=== PATIENT | male | born 1945 | race Caucasian/White ===

== ENCOUNTER 2018-03-01 11:29 | Inpatient (IN) | payer MEDICARE, OTHER ==
[~2018-03-01] VITALS: Ht 170.2 cm; Wt 65.8 kg
[2018-03-01] MEDS ORDERED: FOLIC ACID 1 MG, THIAMINE HCL 100 MG, MVI, ADULT NO.1 10 ML in DEXTROSE 5% WATER 1,000 ML IV ONE ×4 (11:45)
[2018-03-01 12:01] LABS: BASOPHILS % 0.8 % (0.0-2.0); EOSINOPHILS % 4.6 % (0.0-5.0); HEMATOCRIT. 41.9 % (42.0-52.0); HEMOGLOBIN. 14.5 g/dL (14.0-18.0); LYMPHOCYTES % 43.1 % (20.0-50.0); MEAN CORPUSCULAR HEMOGLOBIN 34.2 pg (28.0-32.0); MEAN CORPUSCULAR VOLUME 98.7 fL (80.0-94.0); MEAN PLATELET VOLUME 6.8 fl (7.4-10.4); MONOCYTES % 7.1 % (2.0-8.0); NEUTROPHILS % 44.4 % (40.0-76.0); PLATELET 273 x1000/uL (130-400); RED BLOOD CELL COUNT 4.25 mill/uL (4.7-6.1); RED CELL DISTRIBUTION WIDTH 13.7 % (11.6-14.6)
[2018-03-01 12:11] LABS: CHLORIDE 104 mEq/L (98-107)
[2018-03-01 12:12] LABS: PARTIAL THROMBOPLASTIN TIME 28.2 sec (23.4-31.0); PROTHROMBIN TIME 10.1 sec (9.1-11.1)
[2018-03-01 12:14] LABS: CREATINE KINASE 108 IU/L (39-308)
[2018-03-01 12:19] LABS: CREATINE KINASE MB FRACTION 1.4 ng/mL (0.5-3.6)
[2018-03-01 12:30] LABS: ETHANOL BLOOD 370 mg/dL
[2018-03-01 14:24] LABS: *AMPHETAMINES SCREEN URINE NEGATIVE (NEGATIVE); *BARBITURATES SCREEN URINE NEGATIVE (NEGATIVE); *BENZODIAZEPINES SCREEN URINE NEGATIVE (NEGATIVE); *COCAINE SCREEN URINE NEGATIVE (NEGATIVE); CANNABINOID URINE SCREEN NEGATIVE (NEGATIVE); METHADONE URINE SCREEN NEGATIVE (NEGATIVE); OPIATES URINE SCREEN NEGATIVE (NEGATIVE); PHENCYCLIDINE URINE SCREEN NEGATIVE (NEGATIVE)
[2018-03-01 16:00] VITALS: BP 128/68
[2018-03-01] MEDS ORDERED: LORAZEPAM 2MG/ML CPJ IV PRN ×2 (16:00→20:45)
[2018-03-01] MEDS ORDERED: DOCUSATE SODIUM 100MG CAPSULE PO PRN (16:00)
[2018-03-01] MEDS ORDERED: NA PHOS,M-B/NA PHOS,DI-BA ENEMA 118ML PR PRN (16:00)
[2018-03-01] MEDS ORDERED: ACETAMINOPHEN 325MG TABLET PO PRN (16:00)
[2018-03-01] MEDS ORDERED: GUAIFENESIN 200MG/10ML SUGAR FREE UDC PO PRN (16:00)
[2018-03-01] MEDS ORDERED: IPRATROPIUM/ALBUTEROL 0.5-3(2.5)MG/3ML NEB INH PRN (16:00)
[2018-03-01] MEDS ORDERED: HYDROMORPHONE HCL/PF 2MG/ML CPJ IV PRN (16:00)
[2018-03-01] MEDS ORDERED: DIPHENHYDRAMINE 50MG/ML VIAL IV PRN (16:00)
[2018-03-01] MEDS ORDERED: HYDROCODONE/ACETAMINOPHEN 5/325MG TABLET PO PRN (16:00)
[2018-03-01] MEDS ORDERED: CLONIDINE 0.1MG TABLET PO PRN (16:00)
[2018-03-01] MEDS ORDERED: MAGNESIUM/ALUMINUM HYDROXIDE/SIMETHICONE 30ML UDC PO PRN (16:00)
[2018-03-01] MEDS ORDERED: ONDANSETRON HCL 4MG/2ML INJ IV PRN (16:00)
[2018-03-01] MEDS ORDERED: ENOXAPARIN 40MG/0.4ML SYR SUBCUT SCH (17:00)
[2018-03-01 17:12] VITALS: BP 128/78
[2018-03-01 17:38] LABS: CHLORIDE 104 mEq/L (98-107)
[2018-03-01 20:00] VITALS: BP 129/77
[2018-03-01] MEDS ORDERED: MVI, ADULT NO.1 10 ML, FOLIC ACID 1 MG, THIAMINE HCL 100 MG in SODIUM CHLORIDE 0.9% 1,0... IV SCH ×4 (20:00)
[2018-03-01] MEDS ORDERED: POTASSIUM CHLORIDE 10MEQ TABLET SR PO SCH (20:45)
[2018-03-01] MEDS ORDERED: PANTOPRAZOLE 40MG DR TABLET PO SCH (20:45)
[2018-03-02] VITALS: BP 103/57
[2018-03-02 04:00] VITALS: BP 136/74
[2018-03-02 06:48] LABS: BASOPHILS % 0.8 % (0.0-2.0); HEMATOCRIT. 38.5 % (42.0-52.0); HEMOGLOBIN. 13.2 g/dL (14.0-18.0); LYMPHOCYTES % 22.1 % (20.0-50.0); MEAN CORPUSCULAR HEMOGLOBIN 33.6 pg (28.0-32.0); MEAN PLATELET VOLUME 7.6 fl (7.4-10.4); MONOCYTES % 9.5 % (2.0-8.0); NEUTROPHILS % 66.6 % (40.0-76.0); PLATELET 258 x1000/uL (130-400); RED BLOOD CELL COUNT 3.93 mill/uL (4.7-6.1); RED CELL DISTRIBUTION WIDTH 14.2 % (11.6-14.6)
[2018-03-02 07:05] LABS: CHLORIDE 104 mEq/L (98-107)
[2018-03-02 07:16] LABS: ETHANOL BLOOD < 10 mg/dL; HDL CHOLESTEROL 34 mg/dL (40-59); LDL CHOLESTEROL 102 mg/dL (5-100); T4 FREE 0.87 ng/dL (0.76-1.46)
[2018-03-02 08:00] VITALS: BP 158/79
[2018-03-02] MEDS ORDERED: ASPIRIN 81MG EC TABLET PO SCH (09:00)
[2018-03-02] MEDS ORDERED: ENOXAPARIN 30MG/0.3ML SYR SUBCUT SCH (09:00)
[2018-03-02 12:00] VITALS: BP 149/82
[2018-03-02] MEDS ORDERED: POTASSIUM CHLORIDE 10MEQ TABLET SR PO SCH (14:15)
[2018-03-02 16:00] VITALS: BP 167/84
[2018-03-02 17:02] VITALS: BP 150/80
== END 2018-03-02 18:15 | disposition home or self-care (01) | DRG 917 ==
LOC: ER 11:29 → EDBEDREQ 13:03 → EDBEDREQTM 13:03 → 7WST 13:03 → EDBEDREQ 13:04 → ENRESERV 13:21
PROVIDERS: ADMIT Internal Medicine; ATTEND Internal Medicine
DX: T51.0X1A Toxic effect of ethanol, accidental (unintentional), initial encounter (principal); G92 Toxic encephalopathy; J98.11 Atelectasis; F10.231 Alcohol dependence with withdrawal delirium; E86.0 Dehydration; F17.200 Nicotine dependence, unspecified, uncomplicated; I10 Essential (primary) hypertension; J44.9 Chronic obstructive pulmonary disease, unspecified; M47.892 Other spondylosis, cervical region; Y90.8 Blood alcohol level of 240 mg/100 ml or more; W19.XXXA Unspecified fall, initial encounter; Y92.89 Other specified places as the place of occurrence of the external cause; Y93.89 Activity, other specified; Y99.8 Other external cause status
CPT/HCPCS: 36415; 71045; 80048; 80061; 80305; 80307; 80329; 82550; 82553; 83735; 84439; 84443; 84484; 93005; 96365; 96366; 99285; C1893; G0482; J1650; J3411; J3490; J7030; J7070

== ENCOUNTER 2019-05-02 07:32 | Emergency (ER) | payer MEDICARE, OTHER ==
[~2019-05-02] VITALS: Ht 165.1 cm; Wt 60.0 kg
[2019-05-02 11:00] LABS: CLARITY URINE CLOUDY (CLEAR); COLOR URINE YELLOW (YELLOW); KETONES URINE NEGATIVE (NEGATIVE); LEUKOCYTE ESTERASE URINE TRACE (NEGATIVE); NITRITE URINE NEGATIVE (NEGATIVE); OCCULT BLOOD URINE 3+ (NEGATIVE); PH URINE 6.5 (4.5-8.0); PROTEIN URINE 2+ (NEGATIVE); SPECIFIC GRAVITY URINE 1.011 (1.005-1.030); UROBILINOGEN URINE 0.2 E.U./dL (0.2-1.0)
[2019-05-02 11:02] LABS: BASOPHILS % 0.5 % (0.0-2.0); EOSINOPHILS % 1.1 % (0.0-5.0); HEMATOCRIT. 44.5 % (42.0-52.0); HEMOGLOBIN. 15.4 g/dL (14.0-18.0); LYMPHOCYTES % 13.8 % (20.0-50.0); MEAN CORPUSCULAR HEMOGLOBIN 35.5 pg (28.0-32.0); MEAN CORPUSCULAR VOLUME 102.6 fL (80.0-94.0); MEAN PLATELET VOLUME 7.6 fl (7.4-10.4); MONOCYTES % 9.5 % (2.0-8.0); NEUTROPHILS % 75.1 % (40.0-76.0); PLATELET 230 x1000/uL (130-400); RED BLOOD CELL COUNT 4.34 mill/uL (4.7-6.1); RED CELL DISTRIBUTION WIDTH 13.6 % (11.6-14.6)
[2019-05-02 11:09] LABS: CHLORIDE 103 mEq/L (98-107)
[2019-05-02 11:14] LABS: PROTHROMBIN TIME 10.6 sec (9.6-11.0)
[2019-05-02 12:57] VITALS: BP 155/87
== END 2019-05-02 13:16 | disposition home or self-care (01) ==
LOC: ER 07:50
DX: R33.9 Retention of urine, unspecified (principal)
CPT/HCPCS: 36415; 80053; 81003; 83880; 84484; 85025; 93005; 99284

== ENCOUNTER 2019-05-09 11:54 | Emergency (ER) | payer MEDICARE, MEDICAID ==
[~2019-05-09] VITALS: Ht 167.6 cm; Wt 77.0 kg
[2019-05-09 15:14] VITALS: BP 119/70
== END 2019-05-09 15:15 | disposition home or self-care (01) ==
LOC: ER 12:22
DX: R33.9 Retention of urine, unspecified (principal)
CPT/HCPCS: 99283

== ENCOUNTER 2019-06-20 17:41 | Emergency (ER) | payer MEDICARE, MEDICAID ==
[~2019-06-20] VITALS: Ht 154.9 cm; Wt 73.0 kg
[2019-06-20 19:13] LABS: CLARITY URINE CLEAR (CLEAR); COLOR URINE YELLOW (YELLOW); KETONES URINE NEGATIVE (NEGATIVE); LEUKOCYTE ESTERASE URINE 2+ (NEGATIVE); NITRITE URINE POSITIVE (NEGATIVE); OCCULT BLOOD URINE 3+ (NEGATIVE); PH URINE 5.5 (4.5-8.0); PROTEIN URINE NEGATIVE (NEGATIVE); SPECIFIC GRAVITY URINE 1.021 (1.005-1.030); UROBILINOGEN URINE 0.2 E.U./dL (0.2-1.0)
[2019-06-20 19:17] LABS: BASOPHILS % 0.6 % (0.0-2.0); EOSINOPHILS % 1.4 % (0.0-5.0); HEMOGLOBIN. 13.6 g/dL (14.0-18.0); LYMPHOCYTES % 8.7 % (20.0-50.0); MEAN CORPUSCULAR HEMOGLOBIN 34.4 pg (28.0-32.0); MEAN CORPUSCULAR VOLUME 98.6 fL (80.0-94.0); MEAN PLATELET VOLUME 6.7 fl (7.4-10.4); MONOCYTES % 7.5 % (2.0-8.0); NEUTROPHILS % 81.8 % (40.0-76.0); PLATELET 322 x1000/uL (130-400); RED BLOOD CELL COUNT 3.95 mill/uL (4.7-6.1)
[2019-06-20 19:20] LABS: CHLORIDE 104 mEq/L (98-107)
[2019-06-20 21:33] VITALS: BP 132/76
== END 2019-06-20 21:34 | disposition home or self-care (01) ==
LOC: ER 17:41
DX: N39.0 Urinary tract infection, site not specified (principal); N40.1 Benign prostatic hyperplasia with lower urinary tract symptoms; R33.8 Other retention of urine; F10.21 Alcohol dependence, in remission
CPT/HCPCS: 36415; 51702; 80053; 81003; 85025; 87077; 87186; 99283

== ENCOUNTER 2019-07-08 06:37 | Emergency (ER) | payer MEDICARE, MEDICAID ==
[~2019-07-08] VITALS: Ht 167.6 cm; Wt 74.0 kg
[2019-07-08 08:23] LABS: CLARITY URINE CLEAR (CLEAR); COLOR URINE ORANGE (YELLOW); KETONES URINE NEGATIVE (NEGATIVE); LEUKOCYTE ESTERASE URINE TRACE (NEGATIVE); NITRITE URINE NEGATIVE (NEGATIVE); OCCULT BLOOD URINE 3+ (NEGATIVE); PH URINE 6.5 (4.5-8.0); PROTEIN URINE TRACE (NEGATIVE); SPECIFIC GRAVITY URINE 1.012 (1.005-1.030); UROBILINOGEN URINE 0.2 E.U./dL (0.2-1.0)
[2019-07-08 11:05] VITALS: BP 142/86
== END 2019-07-08 11:14 | disposition home or self-care (01) ==
LOC: ER 07:15
DX: N39.0 Urinary tract infection, site not specified (principal); N40.1 Benign prostatic hyperplasia with lower urinary tract symptoms; R33.8 Other retention of urine
CPT/HCPCS: 81003; 99283

== ENCOUNTER 2019-08-22 07:08 | Emergency (ER) | payer MEDICARE, MEDICAID ==
[~2019-08-22] VITALS: Ht 167.6 cm; Wt 73.5 kg
[2019-08-22] MEDS ORDERED: LIDOCAINE HCL 1% 20ML VIAL (Pyxis) INJ INFIL ONE (08:45)
[2019-08-22] MEDS ORDERED: CEFTRIAXONE SODIUM 1 G/VIAL IM ONE (08:45)
[2019-08-22 09:07] VITALS: BP 157/79
== END 2019-08-22 09:10 | disposition home or self-care (01) ==
LOC: ER 07:08
DX: T83.098A Other mechanical complication of other urinary catheter, initial encounter (principal); N39.0 Urinary tract infection, site not specified; N40.1 Benign prostatic hyperplasia with lower urinary tract symptoms; R33.8 Other retention of urine; Y84.6 Urinary catheterization as the cause of abnormal reaction of the patient, or of later complication, without mention of misadventure at the time of the procedure; Y92.018 Other place in single-family (private) house as the place of occurrence of the external cause
CPT/HCPCS: 51702; 96372; 99284; J0696; J3490

== ENCOUNTER 2019-09-13 21:49 | Emergency (ER) | payer MEDICARE, MEDICAID ==
[~2019-09-13] VITALS: Ht 167.6 cm; Wt 80.0 kg
[2019-09-13 23:25] LABS: CLARITY URINE CLEAR (CLEAR); COLOR URINE YELLOW (YELLOW); KETONES URINE NEGATIVE (NEGATIVE); LEUKOCYTE ESTERASE URINE 2+ (NEGATIVE); NITRITE URINE NEGATIVE (NEGATIVE); OCCULT BLOOD URINE NEGATIVE (NEGATIVE); PROTEIN URINE NEGATIVE (NEGATIVE); SPECIFIC GRAVITY URINE 1.016 (1.005-1.030); UROBILINOGEN URINE 0.2 E.U./dL (0.2-1.0)
[2019-09-13 23:32] LABS: HEMATOCRIT 37.7 % (42.0-52.0); MEAN CORPUSCULAR HEMOGLOBIN 34.4 pg (28.0-32.0); MEAN CORPUSCULAR VOLUME 99.5 fL (80.0-94.0); PLATELET 227 x1000/uL (130-400); RED BLOOD CELL COUNT 3.79 mill/uL (4.7-6.1); RED CELL DISTRIBUTION WIDTH 15.2 % (11.6-14.6)
[2019-09-13 23:42] LABS: CHLORIDE 100 mEq/L (98-107)
[2019-09-14] MEDS ORDERED: CEPHALEXIN 250MG CAPSULE PO NR
[2019-09-14 00:23] VITALS: BP 160/80
== END 2019-09-14 00:26 | disposition home or self-care (01) ==
LOC: ER 21:49
DX: N39.0 Urinary tract infection, site not specified (principal); R33.9 Retention of urine, unspecified
CPT/HCPCS: 36415; 51702; 80053; 81003; 85027; 87077; 87186; 99284

== ENCOUNTER 2019-09-23 06:28 | Emergency (ER) | payer MEDICARE, MEDICAID ==
[~2019-09-23] VITALS: Ht 167.6 cm; Wt 73.0 kg
[2019-09-23] MEDS ORDERED: LEVO500T89 PO (07:03)
[2019-09-23] MEDS ORDERED: CEPH500C2 PO (07:03)
[2019-09-23 11:46] VITALS: BP 130/75
== END 2019-09-23 11:47 | disposition home or self-care (01) ==
LOC: ER 06:52
DX: T83.098A Other mechanical complication of other urinary catheter, initial encounter (principal); N40.1 Benign prostatic hyperplasia with lower urinary tract symptoms; R33.8 Other retention of urine; Y84.6 Urinary catheterization as the cause of abnormal reaction of the patient, or of later complication, without mention of misadventure at the time of the procedure; Y92.018 Other place in single-family (private) house as the place of occurrence of the external cause
CPT/HCPCS: 51702; 99284

== ENCOUNTER 2019-10-22 02:16 | Emergency (ER) | payer MEDICARE, MEDICAID ==
[~2019-10-22] VITALS: Ht 167.6 cm; Wt 75.7 kg
[~2019-10-22 02:16] MED LIST: CEPH500C2 PO; LEVO500T89 PO
[2019-10-22 02:17] VITALS: BP 114/93
== END 2019-10-22 19:46 | disposition left against medical advice (07) ==
LOC: ER 02:16
DX: R31.0 Gross hematuria (principal); R33.9 Retention of urine, unspecified; N40.0 Benign prostatic hyperplasia without lower urinary tract symptoms
CPT/HCPCS: 99284

== ENCOUNTER 2020-01-29 08:05 | Emergency (ER) | payer MEDICARE, MEDICAID ==
[~2020-01-29] VITALS: Ht 162.6 cm; Wt 68.0 kg
[~2020-01-29 08:05] MED LIST changes: +BICA50TA48 MT; -CEPH500C2 PO; +FINA5TAB3 MT; -LEVO500T89 PO; +PROT40 MT; +TAMS-11 MT
[2020-01-29 08:25] VITALS: BP 120/63
== END 2020-01-29 09:31 | disposition home or self-care (01) ==
LOC: ER 08:05
DX: Z45.2 Encounter for adjustment and management of vascular access device (principal); I10 Essential (primary) hypertension
CPT/HCPCS: 99281

== ENCOUNTER 2020-03-03 23:27 | Emergency (ER) | payer MEDICARE, MEDICAID ==
[~2020-03-03] VITALS: Ht 162.6 cm; Wt 71.0 kg
[2020-03-04 01:44] LABS: CLARITY URINE CLOUDY (CLEAR); COLOR URINE YELLOW (YELLOW); KETONES URINE NEGATIVE (NEGATIVE); LEUKOCYTE ESTERASE URINE 2+ (NEGATIVE); NITRITE URINE POSITIVE (NEGATIVE); OCCULT BLOOD URINE 3+ (NEGATIVE); PH URINE 5.5 (4.5-8.0); PROTEIN URINE 1+ (NEGATIVE); SPECIFIC GRAVITY URINE 1.012 (1.005-1.030); UROBILINOGEN URINE 0.2 E.U./dL (0.2-1.0)
[2020-03-04] MEDS ORDERED: CEPHALEXIN 250MG CAPSULE PO ONE (02:45)
[2020-03-04 03:29] VITALS: BP 137/86
== END 2020-03-04 03:59 | disposition home or self-care (01) ==
LOC: ER 23:27
DX: N39.0 Urinary tract infection, site not specified (principal); Z79.899 Other long term (current) drug therapy
CPT/HCPCS: 51702; 81003; 87077; 87186; 93005; 99284

== ENCOUNTER 2023-05-29 13:07 | Emergency (ER) | payer MEDICARE, MEDICAID ==
[~2023-05-29] VITALS: Ht 162.6 cm; Wt 72.0 kg
[~2023-05-29 13:07] MED LIST changes: +FINA-37 MT; -FINA5TAB3 MT; +LEVO-65 MT
[2023-05-29 13:27] VITALS: BP 145/85; PULSE 81; RESP 16; O2SAT 98
[2023-05-29] MEDS: TETANUS, DIPHTHERIA, PERTUSSIS VAC/PF 0.5ML (>10YR OLD) IM ONE (16:00)
[2023-05-29] MEDS: BACITRACIN ZINC OINT UDPKT TOP ONE (16:00)
[2023-05-29] MEDS ORDERED: ACET-2708 MT (17:11)
[2023-05-29] MEDS ORDERED: BO1 TP (17:11)
[2023-05-29 17:15] VITALS: TEMP 98.2
[2023-05-29] MEDS: ACETAMINOPHEN 500MG TABLET PO ONE (17:15)
[2023-05-29] MEDS ORDERED: CEPH500C2 MT (17:43)
== END 2023-05-29 18:21 | disposition home or self-care (01) ==
LOC: ER 13:07
DX: T24.011A Burn of unspecified degree of right thigh, initial encounter (principal); T79.9XXA Unspecified early complication of trauma, initial encounter; T23.171A Burn of first degree of right wrist, initial encounter; I10 Essential (primary) hypertension; X10.1XXA Contact with hot food, initial encounter; Y93.89 Activity, other specified; Y92.89 Other specified places as the place of occurrence of the external cause; Y99.8 Other external cause status
CPT/HCPCS: 16020; 90471; 90715; 99283